=== PATIENT | female | born 1985 | race African-American/Black ===

== ENCOUNTER → 2017-07-31 | Day surgery (SDC) | payer MEDICAID ==
[~2017-07-31] VITALS: Ht 154.9 cm; Wt 69.9 kg
[~2017-07-31] MED LIST: ACET-2178 PO; BUPIVACAINE HCL 0.5% (5MG/ML) 50ML ONE; CEFAZOLIN SODIUM 1000MG/VIAL ONE; DEXAMETHASONE 4MG/ML 1ML VIAL ONE; GLYCOPYRROLATE 0.2 MG/ML 2ML VIAL ONE; HYDROMORPHONE HCL/PF 2MG/ML CPJ IV PRN; LABETALOL HCL 20MG/4ML CARPUJECT IV PRN; LABETALOL HCL 5MG/ML VIAL 20ML IV ONE; LACTATED RINGERS 1,000 ML IV SCH; MEPERIDINE HCL/PF 25MG/ML CPJ IV PRN; NEOSTIGMINE METHYLSULFATE 1MG/ML 10 ML VIAL ONE; ONDANSETRON HCL 4MG/2ML VIAL IV PRN; ROCURONIUM BROMIDE 10MG/ML VIAL 5ML IV ONE; SKIN ADHESIVE 0.7 GM EA TOP ONE
[2017-07-31 06:25] LABS: UCG SCREEN NEGATIVE
[2017-07-31 09:21] VITALS: BP 179/105
== END | disposition home or self-care (01) ==
LOC: OR 05:36
PROVIDERS: ATTEND Obstetrics & Gynecology Obstetrics
DX: N85.8 Other specified noninflammatory disorders of uterus (principal); D64.9 Anemia, unspecified; E66.9 Obesity, unspecified
CPT/HCPCS: 49320; 58120; 81025; 88305; C1725; J0690; J1100; J2175; J2405; J2710; J3490; J7120